=== PATIENT | male | born 1950 | race Caucasian/White ===

== ENCOUNTER 2019-11-03 21:56 | Emergency (ER) | payer BC, MEDICARE ==
--- NOTE | 2019-11-03 22:31 | RAD ---
EXAM: Chest PA and lateral: HISTORY: Injury to chest COMPARISON: none FINDINGS: Lung joe are clear. Vascular markings are normal. Heart and mediastinum appear unremarkable. Osseous structures are unremarkable. IMPRESSION: Unremarkable chest
--- NOTE | 2019-11-03 22:38 | RAD ---
Left ankle: 3 VIEWS INDICATION:Injury and pain COMPARISON:None FINDINGS: Soft tissue swelling at the ankle. No evidence of fracture. No osseous abnormality identified. IMPRESSION: No evidence of fracture
== END 2019-11-03 23:03 | disposition home or self-care (01) ==
LOC: MADERS 21:56
DX: S20.211A Contusion of right front wall of thorax, initial encounter (principal); S80.11XA Contusion of right lower leg, initial encounter; M19.90 Unspecified osteoarthritis, unspecified site; K21.9 Gastro-esophageal reflux disease without esophagitis; F32.9 Major depressive disorder, single episode, unspecified; Z79.891 Long term (current) use of opiate analgesic; Z79.899 Other long term (current) drug therapy; W18.30XA Fall on same level, unspecified, initial encounter
CPT/HCPCS: 71046

== ENCOUNTER 2021-11-28 14:40 | Emergency (ER) | payer MEDICARE ==
[2021-11-28] MEDS ORDERED: Ketorolac Tromethamine 30 MG/ML VIAL ONE (15:57)
== END 2021-11-28 16:12 | disposition home or self-care (01) ==
LOC: MADERS 14:40
DX: R20.0 Anesthesia of skin (principal); K21.9 Gastro-esophageal reflux disease without esophagitis
CPT/HCPCS: 96372; 99283; J1885

== ENCOUNTER 2022-04-04 09:42 | Emergency (ER) | payer MEDICARE ==
[2022-04-04] MEDS ORDERED: Orphenadrine Citrate 60 MG/2 ML VIAL ONE (10:28)
== END 2022-04-04 10:38 | disposition home or self-care (01) ==
LOC: MADERS 09:42
DX: M62.838 Other muscle spasm (principal); K21.9 Gastro-esophageal reflux disease without esophagitis; Z79.899 Other long term (current) drug therapy
CPT/HCPCS: 96372; 99283; J2360